=== PATIENT | male | born 1965 | race Caucasian/White ===

== ENCOUNTER → 2020-05-02 | Outpatient (CLI) | payer BC, OTHER ==
[2013-07-29 16:17] VITALS: BP 177/89
--- NOTE | 2020-05-02 16:02 | KCIC ---
CT HEAD INDICATION: Reason: Memory changes in short and care home memory 6-8 months / Spl. Instructions: / H istory: Hx. hypertension, diabetic. COMPARISON: None Available. Exposure: One or more of the following individualized dose reduction techniques were utilized for thi s examination: 1. Automated exposure control 2. Adjustment of the mA and/or kV according to patient size 3. Use of iterative reconstruction technique TECHNIQUE: 5 mm contiguous axial images were obtained from the skull base to the vertex in both bone and soft tissue algorithm. FINDINGS: Mild bilateral periventricular hypodensities likely chronic small vessel ischemic disease. No evidence of acute intracranial hemorrhage. No extra-axial fluid collections. No mass effect or midline shift. Ventricular size is appropriate. Basal cisterns are patent. No fractures identified.Allen-white differentiation is preserved.Globes and orbits are within normal l imits. Paranasal sinuses and mastoid air cells are clear. IMPRESSION: No acute intracranial findings. If symptoms persist consider MRI for further evaluation. Electronically signed by: Kevin Adam MD (05/02/2020 4:00 PM) [id number]
== END ==
LOC: KCIC CT 15:07
PROVIDERS: ATTEND Family Medicine
DX: R41.3 Other amnesia (principal)
CPT/HCPCS: 70450

== ENCOUNTER → 2021-08-28 | Outpatient (CLI) | payer BC ==
[2013-07-29 16:17] VITALS: BP 177/89
--- NOTE | 2021-08-28 12:04 | RAD ---
EXAM: Abdomen and pelvis CT without intravenous contrast. HISTORY: Right groin pain. TECHNIQUE: Computed tomographic images of the abdomen and pelvis were obtained without contrast. Mult iplanar reformatting was performed. *One or more of the following individualized dose reduction techniques were utilized for this examina tion: 1. Automated exposure control. 2. Adjustment of the mA and/or kV according to patient size. 3. Use of iterative reconstruction technique. COMPARISON: None. FINDINGS: Evaluation of the lower thorax demonstrates a calcified granuloma with adjacent scar within the right middle lobe. There is a 1.4 cm groundglass opacity within the anterior right middle lobe l ikely due to scarring. There is no infiltrate or pleural effusion. The heart is normal in size. No hepatic lesion is seen. The gallbladder is contracted. The pancreas is unremarkable. There are spl enic and hepatic granulomas. The spleen is upper normal in size, likely within normal limits for maureen ent body habitus. The adrenal glands are unremarkable. There may be a punctate left renal stone. There is no hydronephrosis. The bladder is unremarkable. Th ere is no appendicitis. There is colonic diverticulosis. There is no diverticulitis. There are promin ent bilateral inguinal lymph nodes. For reference purposes, the largest lymph node is seen on the lef t measuring 1.8 cm. There is aortic and aortic branch vessel atherosclerosis. There are nonspecific mesenteric and retrop eritoneal lymph nodes. These are not clearly pathologically enlarged. There is degenerative change in volving the visualized spine. There is no acute or suspicious osseous finding. IMPRESSION: 1. Prominent bilateral inguinal lymph nodes, a nonspecific finding which may be physiologic or reacti ve in etiology. No inguinal mass or significant hernia is seen. 2. Colonic diverticulosis. Electronically signed by: Liz Patel MD (08/28/2021 12:02 PM) [id number]
== END ==
LOC: CT 11:09
PROVIDERS: ATTEND Family Medicine
DX: K57.30 Diverticulosis of large intestine without perforation or abscess without bleeding (principal); R91.8 Other nonspecific abnormal finding of lung field; J84.10 Pulmonary fibrosis, unspecified; K75.3 Granulomatous hepatitis, not elsewhere classified; D73.89 Other diseases of spleen; I70.8 Atherosclerosis of other arteries; M47.819 Spondylosis without myelopathy or radiculopathy, site unspecified
CPT/HCPCS: 74176